=== PATIENT | female | born 1960 | race Caucasian/White ===

== ENCOUNTER 2025-02-24 12:40 | Emergency (ER) | payer MEDICARE, SELFPAY ==
[2025-02-24] VITALS (7 sets, daily range): BP systolic 140–167; BP diastolic 76–95; PULSE 57–72; RESP 15–18; TEMP 36.8; O2SAT 96–100; BMI 26.2
--- NOTE | 2025-02-24 12:44 | EDS_ITS ---
HPI History of Present Illness Chief Complaint: Chest Pain [facility] Medical History (Updated 02/24/25 @ 12:50 by Suzan Johns) Anxiety Asthma Medical History no medical history Home Medications ?Medication ?Instructions ?Recorded ?Last Taken ?Type aspirin 81 mg tablet,delayed 81 mg PO DAILY 02/24/25 U nknown History release Allergy/AdvReac Type Severity Reaction Status Date / Time No Known Allergies Allergy Verified 02/24/25 12:42 Family History no significant family his Surgical History no surgical history Social History Smoking Status: Never smoker EXAM Physical Exam Const Vital Signs: 02/24/25 12:41 02/24/25 13:40 02/24/25 14:00 Temperature 98.2 F Temperature Source Oral Pulse Rate 72 58 L 58 L Respiratory Rate 18 15 17 Blood Pressure 167/95 H 143/82 H 140/78 H Blood Pressure Mean 119 102 98 Pulse Ox 99 96 98 Oxygen Delivery Method Room Air Room Air Room Air 02/24/25 15:00 02/24/25 16:00 Temperature Temperature Source Pulse Rate 61 57 L Respiratory Rate 18 Blood Pressure 140/81 H 147/76 H Blood Pressure Mean 100 99 Pulse Ox 99 100 Oxygen Delivery Method Room Air Room Air MDM MDM MDM Narrative Medical decision making narrative: HISTORY OF PRESENT ILLNESS: Chief complaint: Chest pain 64-year-old female presents with chest heaviness, dizziness. She states this began approximate 20 minutes prior to arrival and is since resolved. She describes as burning. No she has issues with GERD in the past but this feels different. Denies cardiovascular history. No she may have high blood pressure basically being treated for. Denies diabetes or hyperlipidemia. Denies cocaine or methamphetamine use. The patient denies recent surgery in the last 4 weeks or immobilization in the last 3 days, denies previous diagnosis of DVT or PE, hemoptysis, unilateral leg swelling or malignancy with treatment the last 6 months or palliative. No estrogen use noted. Patient denies sudden onset of pain, no tearing sensation, no migratory symptoms, no new numbness, weakness or loss of sensation. Patient denies family history or personal history of Connective tissue disorders (Marfan's Syndrome, Angel Danlos etc). Denies bleeding diathesis. Denies cough fever chills. Denies leg swelling. Denies associated shortness of REVIEW OF SYSTEMS: Pertinent positives: Chest pain Pertinent negatives: As per HPI PHYSICAL EXAM: Nursing triage notes reviewed, Vital signs reviewed Constitutional: please see [facility] HENT: MMM Eyes: Pupils equal round and reactive to light, Extraocular muscles intact Neck: No stridor, no JVD, full neck ROM Lungs: Clear to auscultation, No wheezing or rales. No increased work of breathing, no conversational dyspnea, no accessory muscle use, no nasal flaring. No respiratory distress noted Heart: Regular rate and rhythm, No murmurs, No rubs and No gallops, 2+ distal pulses (radial, femoral, posterior tibial) in all extremities Abdomen: Soft, there is no tenderness, rigidity, rebound or guarding, no obvious peritoneal signs, no palpable pulsatile abdominal masses, no auscultated abdominal bruit : No CVAT Extremities: No edema Neuro: Alert and oriented x3, neuro exam at baseline, cranial nerves II through XII are intact. No pain with extraocular muscle movement. There is negative test of skew. 5 of 5 strength in upper and lower extremities in flexion extension. Intact sensation to light touch in upper and lower extremity dermatomes. No truncal or extremity ataxia. No dysdiadochokinesia. Normal gait. 2+ reflexes in upper and lower extremities. No meningeal signs. Negative Babinski. NIH of 0. Skin: No rash or lesions noted MEDICAL DECISION MAKING: Chief Complaint: please see [facility] External records reviewed: No recent ED visits or cardiovascular testing noted in the Factors affecting care: none reported in the chart. Per patient hypertension Social determinants of health: Denies cocaine/methamphetamine use, notes alcohol use 4 to 5 days ago. Denies recent alcohol use History obtained from others: none Consults: none [facility] Narrative: The patient was initially hemodynamically stable, afebrile and nontoxic- appearing. Exam without focal cardiopulmonary maladies. No pulse deficits. No stigmata of CHF, VTE or aortic dissection on initial exam I considered the following differential diagnosis: ACS, arrhythmia, anemia, electro disturbance, pneumonia, pericarditis, pneumothorax, PE, aortic dissection amongst others I obtained a broad lab and imaging to further determine if the patient was suffering from a life-threatening etiology. Initially to the patient IV Pepcid ALL IMAGES (IF OBTAINED) HAVE BEEN PERSONALLY REVIEWED AND INTERPRETED BY MYSELF. EKG with normal sinus rhythm rate of 65, normal axis, normal intervals, no STEMI, no stigmata of VTE D-dimer negative making VTE and dissection less likely High-sensitivity troponin is negative, no evidence of myocardial ischemia. Will await delta Lipase is wnl indicating no pancreatic inflammation. CBC without leukocytosis, severe anemia, no thrombocytopenia. CMP without evidence of acute kidney injury, significant electrolyte abnormality, anion gap to suggest end organ hypo-perfusion, no evidence of metabolic acidosis with a normal bicarbonate, no evidence of hepatobiliary obstructive pathology. I have personally reviewed the patient's chest x-ray. Chest x-ray is unremarkable for pulmonary edema, pneumothorax, pneumonia or focal cardiopulmonary abnormality. Delta troponin also negative Given 2 negative high-sensitivity troponins patient rules out for ACS based on our Our high-sensitivity Upon reassessment the patient's blood pressure improved to 140/81. Repeat cardiopulmonary exam without focal abnormalities. Patient chest pain-free and appropriate for discharge home. Gave outpatient follow-up The patient and/or family, caregivers express understanding. The patient and/or family, caregivers agrees with the plan. Shared decision making: I will have a discussion with the patient and or visitors regarding risk/benefits of further testing or admission. They will be made aware of of the risk/benefits inherent in this decision they will be given the opportunity to voice understanding. Total critical care time today provided was at least 0 minutes. This excludes separately billable procedures. Critical care time (if documented) is secondary to the patient having high probability of clinically significant/life threatening deterioration in the patient's condition which required my urgent intervention. Impression: 1. Chest pain 2. History of hypertension Dispo: Discharge This note was generated with [employer] dictation software. It may contain incorrect words, spelling, and punctuation that were not noted in review of the chart prior to signing. Lab Data Attestation: I reviewed the patient's lab results. Labs: Laboratory Results - last 24 hr 02/24/25 02/24/25 12:57 15:08 WBC 5.6 RBC 4.79 Hgb 14.4 Hct 41.9 MCV 87.5 MCH 30.1 MCHC 34.4 RDW Std Deviation 42.2 RDW Coeff of Paul 13.2 Plt Count 202 MPV 11.8 Immature Gran % (Auto) 0.400 Neut % (Auto) 57.5 Lymph % (Auto) 30.9 [place] % (Auto) 8.7 Eos % (Auto) 2.0 Baso % (Auto) 0.5 Absolute Neuts (auto) 3.2 Absolute Lymphs (auto) 1.74 Nucleated RBC % 0 D-Dimer Quant (PE/DVT) 0.27 Sodium 141 Potassium 4.1 Chloride 107 Carbon Dioxide 22.2 Anion Gap 12 BUN 14 Creatinine 0.72 Estim Creat Clear Calc 58.77 Est GFR (MDRD) Non-Af 92 BUN/Creatinine Ratio 19.1 Glucose 105 H Calcium 9.6 Total Bilirubin 0.52 AST 21 ALT 15 Alkaline Phosphatase 74 Troponin T High Sens < 6 Troponin T Hi Sens 2 Hr < 6 Total Protein 6.5 Albumin 4.4 Globulin 2.1 L Albumin/Globulin Ratio 2.1 Lipase 24 Radiography Chest X-Ray - ED: Read by ED Physician Diagnostic Testing: Clinical Impression(s) from Imaging Studies Chest X-Ray 02/24/25 13:10 IMPRESSION: Negative Chest. Reading Location: [facility] Discharge Plan Triage Chief Complaint: Chest Pain ED Provider: Jj Cunningham Dx/Rx/DC Orders Instructions: ED Chest Pain, Uncertain Cause Prescriptions: No Action aspirin 81 mg tablet,delayed release (DR/EC) 81 mg PO DAILY Primary Care Provider: JOHNNA TRENT Referrals: Ayesha Doctor,Out of [Non-Staff] - Activity Restrictions/Additional Instructions: Thank you for trusting us with your care today! Your labs and images are reassuring. Specifically no sign of heart damage, lung damage or signs of blood clots. Please take Tylenol (2 pills, 650 mg), ibuprofen (2 pills, 400 mg) every 6 hours as needed for pain and fever control. Please return to the emergency department if your symptoms change or worsen. Please follow with your primary care physician for further outpatient evaluation and management. Print Language: [place]ian Disposition Disposition: Home, Self Care
--- NOTE | 2025-02-24 12:46 | EKG12_ITS ---
Test Reason : CP Blood Pressure : */* mmHG Vent. Rate : 65 BPM Atrial Rate : 65 BPM P-R Int : 158 ms QRS Dur : 82 ms QT Int : 404 ms P-R-T Axes : 61 42 52 degrees QTcB Int : 420 ms Normal sinus rhythm Possible Left atrial enlargement Borderline ECG Confirmed by Jackson Obrien ([id number]), market editor TURNER LARIOS ([id number]) on 02/25/2025 1:10:48 PM Referred By: Confirmed By: Jackson Obrien
--- NOTE | 2025-02-24 13:10 | RAD_ITS ---
PROCEDURE: CHEST 1 VIEW (PORTABLE) 02/24/2025 REASON FOR EXAM: CHEST PAIN TECHNIQUE: Frontal view of the chest. COMPARISON: None. FINDINGS: Hardware: None. Heart: The heart size is normal. Lungs: No focal consolidation, pleural effusion or pneumothorax. Bones: Degenerative changes are identified within the thoracic spine. RAD/Chest 1 View (Portable) IMPRESSION: Negative Chest. Reading Location: [id number]
[2025-02-24 13:18] LABS: Hematocrit 41.9 % (37-47); Hemoglobin 14.4 g/dL (12.0-15.0); Immature Granulocytes Count 0.020 X10^3/uL (0.0-0.0); Mean Corp Hgb Conc 34.4 g/dL (32-36); Mean Corpuscular Volume 87.5 fL (81-99); Mean Platelet Vol. 11.8 fl (6.2-12.0); NRBC Flagged by Analyzer 0 % (0-5); Platelet Count 202 K/mm3 (150-450); RBC Distribution Width CV 13.2 % (11.6-14.6); RBC Distribution Width SD 42.2 fl (35.1-43.9); Red Blood Count 4.79 M/mm3 (4.2-5.4); White Blood Count 5.6 K/mm3 (4.4-11.0)
[2025-02-24 13:28] LABS: D-Dimer Quantitative (DVT/PE) 0.27 FEU/ug/m (0.27-0.49)
[2025-02-24 13:46] LABS: AST(SGOT) 21 U/L (<=31); Alanine Aminotransfer ALT/SGPT 15 U/L (<=34); Albumin, Serum 4.4 g/dL (3.4-4.8); Alkaline Phosphatase 74 U/L (35-104); Anion Gap 12 (5-15); BUN 14 mg/dL (4-19); BUN/Creat Ratio 19.1 RATIO (10-20); Calcium,Total 9.6 mg/dL (7.6-11.0); Carbon Dioxide 22.2 mmol/L (21.0-32.0); Chloride 107 mmol/L (98-108); Estimated Creatinine Clearance 58.77 ml/min (50-250); Globulin 2.1 g/dL (2.2-4.2); Glucose 105 mg/dL (70-99); Lipase 24 U/L (13-75); Potassium 4.1 mmol/L (3.3-5.1)
[2025-02-24 13:50] LABS: Troponin T High Sensitivity < 6 ng/L (<=14)
[2025-02-24] MEDS: Famotidine 200 MG/20 ML MDV 20 MG in 0.9% Normal Saline (Pres. free 8 ML 300 MG IV (13:52)
[2025-02-24 16:16] LABS: Troponin T High Sens 2 HR < 6 ng/L (<=14)
== END 2025-02-24 18:47 | disposition home or self-care (01) ==
PROVIDERS: Emergency Provider Emergency Medicine; Visit Provider Emergency Medicine
DX: R07.9 Chest pain, unspecified (principal); Z79.82 Long term (current) use of aspirin
CPT/HCPCS: 71045; 80053; 83690; 84484; 85025; 85379; 93005; 99284; A4216